=== PATIENT | female | born 1995 | race Caucasian/White ===

== ENCOUNTER 2016-08-04 22:50 | Emergency (ER) | payer OTHER ==
[2016-08-04 23:09] LABS: BASO % 0.4 % (0.1-1.2); EOS # 0.1 10_X3_uL (0.0-0.4); EOS % 1.3 % (0.7-5.8); GRAN # 5.7 10_X3_uL (1.6-6.1); GRAN % 55.2 % (34.0-71.1); HEMATOCRIT 40.9 % (34-45); HEMOGLOBIN 14.3 g/dL (11.2-15.7); LYMPH # 3.5 10_X3_uL (1.2-3.7); MEAN CORPUSCULAR HEMOGLOBIN 30.2 pg (27.0-33.0); MEAN CORPUSCULAR VOLUME 86.3 fL (79-95); MEAN PLATELET VOLUME 10.9 fl (7.5-11.5); MONO # 0.9 10_X3_uL (0.2-0.9); MONO % 9.1 % (4.7-12.5); PLATELET COUNT 276 x10_3/uL (182-369); RED BLOOD COUNT 4.74 x10_6/uL (3.9-5.2); RED CELL DISTRIBUTION WIDTH 12.1 % (11.7-14.4); WHITE BLOOD COUNT 10.3 x10_3/uL (4.0-10.0)
[2016-08-04 23:28] LABS: BLOOD UREA NITROGEN 10 mg/dL (7-18); CALCIUM 9.1 mg/dL (8.7-10.7); CARBON DIOXIDE 25 mmol/L (21-32); CREATININE 0.6 mg/dL (0.6-1.3); GLUCOSE,RANDOM 109 mg/dL (70-99); SODIUM 142 mmol/L (136-145)
== END 2016-08-05 00:28 | disposition home or self-care (01) ==
LOC: ER 22:50
PROVIDERS: General Practice
DX: R07.89 Other chest pain (principal); R06.02 Shortness of breath; F17.210 Nicotine dependence, cigarettes, uncomplicated; Z88.2 Allergy status to sulfonamides; Z88.1 Allergy status to other antibiotic agents
CPT/HCPCS: 36415; 71010; 80048; 81025; 85025; 85379; 93005; 96372; 99285-25

== ENCOUNTER 2016-08-14 15:28 | Emergency (ER) | payer OTHER ==
[2016-08-14 16:45] LABS: BASO % 0.3 % (0.1-1.2); EOS # 0.1 10_X3_uL (0.0-0.4); EOS % 1.1 % (0.7-5.8); GRAN # 6.8 10_X3_uL (1.6-6.1); GRAN % 69.7 % (34.0-71.1); HEMATOCRIT 40.3 % (34-45); HEMOGLOBIN 14.1 g/dL (11.2-15.7); LYMPH % 20.3 % (19.3-51.7); MEAN CORPUSCULAR HEMOGLOBIN 30.4 pg (27.0-33.0); MEAN CORPUSCULAR VOLUME 86.9 fL (79-95); MEAN PLATELET VOLUME 11.2 fl (7.5-11.5); MONO # 0.9 10_X3_uL (0.2-0.9); MONO % 8.6 % (4.7-12.5); PLATELET COUNT 239 x10_3/uL (182-369); RED BLOOD COUNT 4.64 x10_6/uL (3.9-5.2); RED CELL DISTRIBUTION WIDTH 12.4 % (11.7-14.4); WHITE BLOOD COUNT 9.8 x10_3/uL (4.0-10.0)
[2016-08-14 16:56] LABS: BLOOD UREA NITROGEN 9 mg/dL (7-18); CALCIUM 8.8 mg/dL (8.7-10.7); CARBON DIOXIDE 23 mmol/L (21-32); CREATININE 0.6 mg/dL (0.6-1.3); GLUCOSE,RANDOM 88 mg/dL (70-99); POTASSIUM 3.8 mmol/L (3.5-5.1); SODIUM 140 mmol/L (136-145)
== END 2016-08-14 18:58 | disposition home or self-care (01) ==
LOC: ER 15:28
PROVIDERS: Emergency Medicine
DX: N93.8 Other specified abnormal uterine and vaginal bleeding (principal); Z86.14 Personal history of Methicillin resistant Staphylococcus aureus infection; Z87.42 Personal history of other diseases of the female genital tract; Z88.1 Allergy status to other antibiotic agents; Z88.2 Allergy status to sulfonamides
CPT/HCPCS: 36415; 80048; 84703; 85025; 99283